=== PATIENT | male | born 1990 | race Caucasian/White ===

== ENCOUNTER 2019-09-01 11:16 | Emergency (ER) | payer MEDICAID, SELFPAY ==
[2019-09-01 11:32] VITALS: BMI 43.7
[2019-09-01 11:35] VITALS: BP 132/82; PULSE 109; RESP 18; TEMP 37.1; O2SAT 94
--- NOTE | 2019-09-01 12:13 | W.ED.EXTPRO ---
HPI - Extremity Problem General: Chief complaint: Extremity Problem,Nontraumatic Stated complaint: gout Time Seen by Provider: 09/01/19 11:34 Source: patient Mode of arrival: ambulatory Limitations: physical limitation History of Present Illness: HPI Narrative: Gout flare up MD Complaint: extremity pain Onset (ago): day(s) (1) Location: right and lower extremity Severity scale (1-10): 5 Review of Systems General: Reports: 10 or more systems reviewed and unremarkable except in HPI and below Musc: Reports: extremity pain (right foot ) and extremity swelling Physical Exam Const: COMMON NORMALS: no acute distress, patient oriented x3, no limitations and alert GENERAL APPEARANCE: cooperative and comfortable ORIENTATION/CONSCIOUSNESS: Yes awake, Yes oriented to person, Yes oriented to place and Yes oriented to time HENMT: COMMON NORMALS: normocephalic, atraumatic, external ears normal, EAC's normal, TM's normal bilaterally and Normal external nose present HEAD & SCALP: normal to inspection, normocephalic and atraumatic FACE & SINUS: normal facial exam, sinuses nontender and face symmetric NOSE: Normal external nose present, Normal nares present and No nasal discharge present EXTERNAL EAR: Yes external ears normal EXTERNAL AUDITORY CANAL: EAC's normal TYMPANIC MEMBRANE: TM's normal bilaterally MOUTH: Normal oral and palatal mucosa present, lip normal and tongue normal THROAT: posterior oropharynx normal, tonsils normal and uvula midline Eye: COMMON NORMALS: Equal, round and reactive pupils present, EOMs intact bilaterally and conjunctivae normal GENERAL EYE: appearance normal, both eyes and all related structures and normal light reflex EYELID: eyelids normal CONJUNCTIVA: Yes conjunctivae normal PUPIL: Yes Equal, round and reactive pupils present EOM: Yes EOM abnormal DIRECT OPHTHALMOSCOPY: Yes normal light reflex Neck/C-Spine: COMMON NORMALS: full ROM, no lymphadenopathy, supple, no meningeal signs, no JVD and Thyroid normal GENERAL: Yes normal visual inspection THYROID: Thyroid normal CERVICAL SPINE: Yes cervical ROM normal and Yes normal cervical lordosis Lymph: LYMPHATIC: no lymphadenopathy noted Chest: COMMONS NORMALS: normal inspection of the chest and normal palpation of entire chest wall Resp: COMMON NORMALS: normal respiratory effort, No retractions and clear to auscultation bilaterally AUSCULTATION: clear to auscultation bilaterally Cardio: COMMON NORMALS: no JVD, regular rate, regular rhythm, S1 normal heart sound present, S2 normal heart sound present, No gallops present (Cardio), No clicks present (Cardio), No murmurs present (Cardio), No rub (Cardio) and Peripheral pulses 2+ throughout RATE: regular rate RHYTHM: regular rhythm HEART SOUNDS: S1 normal heart sound present and S2 normal heart sound present PERIPHERAL PULSES: Peripheral pulses 2+ throughout GI: COMMON NORMALS: Normal to inspection, nondistended, normoactive bowel sounds present, Soft to palpation, non-tender and no masses PALPATION: Yes Soft to palpation : COMMON NORMALS: Yes no CVA tenderness BLADDER/KIDNEY EXAM: Yes no CVA tenderness Back/Pelvis: COMMON NORMALS: no CVA tenderness, thoracic and lumbar spine normal to inspection, no thoracic nor lumbar tenderness and thoraco-lumbar ROM normal Extremity: COMMON NORMALS: normal to inspection, full ROM, capillary refill normal, no joint enlargement, no clubbing, cyanosis or edema, no calf tenderness and no pedal edema GENERAL: Yes normal exam except as noted RIGHT LOWER EXTREMITY: Yes foot & digits (pain and limited ROM; no obvious redness or acute swelling) Neuro: COMMON NORMALS: patient oriented x3, moves all extremities, no focal motor deficits, no sensory deficits noted and gait normal SENSORIUM/ORIENTATION: Yes alert, Yes oriented to person, Yes oriented to place and Yes oriented to time MENINGEAL SIGNS: Yes no meningeal signs Psych: COMMON NORMALS: mental status grossly normal, Normal thought process present, cooperative, normal affect, speech normal and activity/motor behavior normal SPEECH: Yes normal speech THOUGHT PROCESS: Normal thought process present Skin: COMMON NORMALS: no rashes or lesions noted, no wounds and turgor normal GENERAL SKIN EXAM: no rashes or lesions noted and turgor normal Course ED course: Pt comes to us with acute gout flare up. He has been drinking soda and no water for the past few days due to finances and states this is cheaper. Will treat with colchicine and have pt follow up with PCP in 1 - 2 days. Discussed plant based diet and exing soda from his diet. Vital Signs: Vital signs: Vital Signs Temperature 98.8 F 09/01/19 11:35 Pulse Rate 109 H 09/01/19 11:35 Respiratory Rate 18 09/01/19 11:35 Blood Pressure 132/82 09/01/19 11:35 Pulse Oximetry 94 09/01/19 11:35 Discharge Plan Discharge Patient Disposition: Home Clinical Impression: Gout Condition: Stable Prescriptions: New colchicine 0.6 mg capsule 0.6 mg PO DAILY Qty: 3 RF: 0 Discharge Diet: Usual diet Discharge Activity: Increase activity as tolerated Activity Restrictions/Additional Instructions: Fill script and take medication after filling (at least one hour after your dose given in the ER). Take remaining tablets once daily for 2 days. Decrease soda intake and increase water. Consider plant based diet. 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
[2019-09-01] MEDS: colchicine 0.6 mg Tablet PO (12:35)
[2019-09-01] MEDS: TRAMadol 50 mg Tablet PO (12:35)
[2019-09-01 12:42] VITALS: BP 123/71; PULSE 103; RESP 18; O2SAT 91
== END 2019-09-01 13:13 | disposition home or self-care (01) ==
LOC: ER 12:41
PROVIDERS: Emergency Provider Nurse Practitioner Family
DX: M10.9 Gout, unspecified (principal)
CPT/HCPCS: 12345; 99281; 99283; E0114

== ENCOUNTER 2023-10-07 05:14 | Emergency (ER) | payer MEDICAID, SELFPAY ==
[2023-10-07 05:22] VITALS: PULSE 91; RESP 18; TEMP 36.8; O2SAT 97; BMI 47.5
--- NOTE | 2023-10-07 05:45 | ED_ITS ---
HPI - Wound/Laceration General: Chief Complaint: Wound/Laceration Stated Complaint: Right hand finger injury Time Seen by Provider: 10/07/23 05:45 History of Present Illness: 33-year-old male presents to the emergen cy room he tripped and put his hand through a glass door. Laceration on the right fourth finger with a small avulsion flap and minimal bleeding. Approximately 1 cm in length patient relates his tetanus is up-to-date Related Data Previous Rx's Medication Instructions Recorded colchicine 0.6 mg capsule 0.6 mg PO DAILY #3 caps 09/01/19 mupirocin 2 % topical ointment 1 applic topical DAILY #15 grams 10/07/23 Allergies Allergy/AdvReac Type Severity Reaction Status Date / Time Sulfa (Sulfonamide Allergy Unknown Verified 09/01/19 11:38 Antibiotics) Physical Exam Narrative: EXAM NARRATIVE: Dorsum left finger over the PIP joint there is an avulsion approximately 3 mm wide and 1 cm in length. Partial-thickness. No exposure of underlying tendon or joint. Neurovascularly intact Procedures Laceration Laceration 1: Site: hand Side (If applicable): right Size (cm): 1 Description: linear and flap Depth: simple, single layer Local Anesthetic: lidocaine 1% Amount of anesthesia used (mL): 0.5 Pre-repair: wound explored, irrigated extensively and wound margins revised Skin layer closed with: nylon Size (cm): 5-0 Number of sutures: 1 Technique: simple, interrupted Course Vital Signs: Vital signs: Vital Signs Temperature 98.2 F 10/07/23 05:22 Pulse Rate 98 10/07/23 06:01 Respiratory Rate 18 10/07/23 06:01 Blood Pressure 178/102 10/07/23 06:01 Pulse Oximetry 98 10/07/23 06:01 Oxygen Delivery Me thod Room Air 10/07/23 05:22 MDM - Wound/Laceration Medical Decision Making Wound care instructions given. Remove sutures in 7 to 10 days No radiology studies performed this visit Discharge Plan Discharge Patient Disposition: Home Clinical Impression: Laceration, Avulsion of skin Condition: Stable Prescriptions: New mupirocin 2 % ointment 1 applic topical DAILY Qty: 15 0RF No Action colchicine 0.6 mg capsule 0.6 mg PO DAILY Qty: 3 0RF Discharge Orders: Discharge ED (Routine); Ordered 08/31/24 Ordered By: Adrian Linares Referrals: Julita Pascual FNP [Primary Care Provider] - Discharge Diet: Usual diet Patient Instructions: Laceration (ED), Opioid Safety, Pain Management Activity Restrictions/Additional Instructions: Thank you for choosing [facility] for your healthcare needs today. It is very important that you follow up as instructed or that you return to the Emergency Department should you have concerns or if your condition changes or worsens in any way. Apply topical antibiotic ointment to wound once daily remove sutures in 7 to 10 days with your primary care doctor Coding Level of Care Code ED Red Cap for Nereyda Siddiqui
[2023-10-07 06:01] VITALS: BP 178/102; PULSE 98; RESP 18; O2SAT 98
[2023-10-07 06:12] VITALS: BP 172/109; PULSE 98; RESP 18; O2SAT 98
== END 2023-10-07 06:14 | disposition home or self-care (01) ==
PROVIDERS: Emergency Provider Family Medicine; PCP Nurse Practitioner Family
DX: S61.214A Laceration without foreign body of right ring finger without damage to nail, initial encounter (principal); W01.198A Fall on same level from slipping, tripping and stumbling with subsequent striking against other object, initial encounter
CPT/HCPCS: 99283